=== PATIENT | female | born 1935 | race American Indian/Alaskan Native ===

== ENCOUNTER 2017-04-24 19:39 | Emergency (ER) | payer MEDICARE ==
[2017-04-24 20:49] LABS: Basophils % (Auto) 0.8 % (0.0-1.8); Eosinophils % (Auto) 5.7 % (0.0-4.3); Hematocrit 42.6 % (30.3-42.9); Hemoglobin 13.8 gm/dl (10.1-14.3); Mean Corpuscular HGB Conc 32 % (30-34); Mean Corpuscular Hemoglobin 30 pg (28-32); Mean Corpuscular Volume 94 fl (79-97); Platelet Count 178 K/mm3 (140-440); Red Blood Count 4.54 M/mm3 (3.65-5.03); Red Cell Distribution Width 14.1 % (13.2-15.2); White Blood Count 3.4 K/mm3 (4.5-11.0)
[2017-04-24 21:07] LABS: Anion Gap 18 mmol/L; Blood Urea Nitrogen 15 mg/dL (7-17); Carbon Dioxide 28 mmol/L (22-30); Chloride 99.2 mmol/L (98-107); Glucose 114 mg/dL (65-100); Potassium 4.1 mmol/L (3.6-5.0); Sodium 141 mmol/L (137-145)
[2017-04-25] MEDS ORDERED: APRESOLINE IV ONE (00:56)
--- NOTE | 2017-04-25 01:18 | Emergency Department Report ---
HPI - General Chief Complaint: High BP Time Seen by Provider: 04/25/17 00:36 - HPI HPI: This is a 81-year-old who presents to the emergency department with complaint of a 5 day history of left arm pain that is a intense throbbing sensation to the left arm with some tingling radiating down. Over the past few days as well she started to have some of the tingling sensation in her left lower extremity. She's been mentioning the symptoms to her daughter, who she is currently visiting from [place], and the daughter checked her blood pressure and found it to be quite elevated despite taking her blood pressure medication. She has denied any headache, chest pain, shortness of breath, nausea, vomiting or fever. She is not taken anything for symptoms prior to presentation. She has a past history of GERD and hypertension. She has a history of stomach cancer with colon resection in 2013. She denies any history of NV, CVA, PE/DVT. ED Past Medical Hx - Past Medical History Hx Hypertension: Yes Hx GERD: Yes Additional medical history: stomach Ca-colon resection 2013 - Surgical History Additional Surgical History: Ca stomach 2013.various veins - Social History Smoking Status: Unknown if ever smoked Substance Use Type: None ED Review of Systems ROS: Stated complaint: HIGH BLOOD PRESSURE Other details as noted in HPI Comment: All other systems reviewed and negative Constitutional: denies: chills, fever Eyes: denies: eye pain, eye discharge, vision change ENT: denies: ear pain, throat pain Respiratory: denies: cough, shortness of breath, wheezing Cardiovascular: denies: chest pain, palpitations Gastrointestinal: denies: abdominal pain, nausea, diarrhea Genitourinary: denies: urgency, dysuria, discharge Musculoskeletal: arthralgia, myalgia Skin: denies: rash, lesions Neurological: paresthesias. denies: headache Physical Exam - Physical Exam Vital Signs: Vital Signs 04/24/17 04/24/17 04/25/17 20:22 22:53 00:53 Temperature 98.6 F Pulse Rate 79 66 74 Respiratory 20 20 16 Rate Blood Pressure 176/109 Blood Pressure 149/83 176/92 [Right] O2 Sat by Pulse 98 98 96 Oximetry Physical Exam: GENERAL: The patient is well-developed well-nourished. HEENT: Normocephalic. Atraumatic. Extraocular motions are intact. Patient has moist mucous membranes. Pupils equal reactive to light bilaterally. NECK: Supple. Trachea is mid line. CHEST/LUNGS: Clear to auscultation. There is no respiratory distress noted. HEART/CARDIOVASCULAR: Regular. There is no tachycardia. There is no gallop rub or murmur. ABDOMEN: Abdomen is soft, nontender. Patient has normal bowel sounds. There is no abdominal distention. SKIN: Skin is warm and dry. NEURO: The patient is awake, alert, and oriented. The patient is cooperative. The patient has no focal neurologic deficits. The patient has normal speech and gait. MUSCULOSKELETAL: Unable to reproduce patient's left arm pain to palpation. No deformity. There is no limitation range of motion. There is no evidence of acute injury. ED Course Vital Signs 04/24/17 04/24/17 04/25/17 20:22 22:53 00:53 Temperature 98.6 F Pulse Rate 79 66 74 Respiratory 20 20 16 Rate Blood Pressure 176/109 Blood Pressure 149/83 176/92 [Right] O2 Sat by Pulse 98 98 96 Oximetry ED Medical Decision Making - Lab Data Result diagrams: 04/24/17 20:36 04/24/17 20:36 - EKG Data -: EKG Interpreted by Me EKG shows normal: sinus rhythm, axis, intervals, QRS complexes (Q waves to the septal leads), ST-T waves Rate: normal - EKG Data When compared to previous EKG there are: previous EKG unavailable Interpretation: other (sinus rhythm, normal axis, Q waves to the septal leads) - Radiology Data Radiology results: image reviewed interpreted by me: Treatment of the left humerus does not show any fracture, dislocation or any acute process. - Medical Decision Making 81-year-old female presents to the emergency department with left arm pain and some left arm paresthesias with some radiation of these symptoms down to the left lower extremity as well. She denies any chest pain or shortness of breath. He also presents with elevated blood pressure that required a dose of antihypertensives. EKG does not show any signs of ST elevation NV, ischemia or dysrhythmia. Patient had a negative troponin. In order to try and rule out a DVT as the source of her left leg pain, the patient had a d-dimer done. He came back slightly elevated in equivocal. However with her age it is more likely that it is negative. Despite the patient's negative workup thus far, other than the slightly equivocal d-dimer, my plan was going to be recommendation for her intermittent left arm pain which could represent an atypical angina pain. However the patient does not want to be admitted to the hospital and refuses any further imaging or blood draws at this time. I did explain to her that she may just have some neuropathy or musculoskeletal pain but it may be atypical angina and leaving without further workup could result in NV, worsening pain, disability, coma or . Despite that she still wants to leave and signed out AGAINST MEDICAL ADVICE. However I did agree to write for a outpatient venous Doppler to make sure that the left lower extremity did not have a DVT. If positive she will return to the ER. She is also aware that she can change her mind and return for admission - Differential Diagnosis NV, neuropathy, radiculopathy, occult fracture Critical Care Time: No Critical care attestation.: If time is entered above; I have spent that time in minutes in the direct care of this critically ill patient, excluding procedure time. ED Disposition Clinical Impression: Left arm pain, Left leg pain, Paresthesias Hypertension Qualifiers: Hypertension type: essential hypertension Qualified Code(s): I10 - Essential ( primary) hypertension Disposition: DC-07 LEFT AGAINST MED ADVICE Is pt being admited?: Yes Condition: Stable Instructions: Arthralgia (ED), Paresthesia (ED), Hypertension (ED) Additional Instructions: Please return to the emergency department immediately if you change your mind about admission or have any distress. Otherwise I have given you it in order to have an outpatient Doppler ultrasound of your left leg to rule out a blood clot. If this test is positive, they will redirect you back to the emergency department. If negative, you are encouraged to follow-up with your primary care doctor when you're able to do so. Referrals: PRIMARY CARE, [Primary Care Provider] - [facility] Forms: AMA Form
[2017-04-25 02:25] VITALS: BP 132/67
--- NOTE | 2017-04-25 07:12 | XRay Report ---
LEFT HUMERUS: History: Left arm pain. AP and lateral views of the humerus demonstrate normal mineralization and contours for this patient's age. No destructive changes are noted and the adjacent soft tissues are normal. IMPRESSION: Normal left humerus.
== END 2017-04-25 03:21 | disposition left against medical advice (07) ==
LOC: ED 19:39
DX: M79.602 Pain in left arm (principal); M79.605 Pain in left leg; R20.2 Paresthesia of skin; I10 Essential (primary) hypertension; K21.9 Gastro-esophageal reflux disease without esophagitis; C16.9 Malignant neoplasm of stomach, unspecified
CPT/HCPCS: 36415; 73060; 80048; 84484; 85025; 85379; 93005; 93010; 96374; 99285; J0360

== ENCOUNTER 2017-04-25 15:22 | Outpatient (CLI) | payer MEDICARE ==
--- NOTE | 2017-04-27 11:18 | Vascular Lab Report ---
Left Lower Extremity Venous Duplex Study: Reason for Exam: swelling of the left lower extremity. Comments on the Right: A limited duplex study was done of the proximal veins of the right lower extremity. All veins visualized are freely compressible without evidence of internal echogenicity. Flow is spontaneous and phasic throughout. No evidence of acute or chronic thrombus is seen in any of the vessels visualized. Comments on the Left: All veins visualized are freely compressible without evidence of internal echogenicity. Flow is spontaneous and phasic throughout. No evidence of acute or chronic thrombus is seen in any of the vessels visualized. Soft tissue changes in the left leg consistent with edema Impression: No evidence of acute or chronic deep venous thrombosis in the left lower extremity.
== END 2017-04-25 15:23 | disposition home or self-care (01) ==
LOC: VAS 15:22
PROVIDERS: ATTEND Emergency Medicine
DX: M79.605 Pain in left leg (principal); I10 Essential (primary) hypertension; K21.9 Gastro-esophageal reflux disease without esophagitis